=== PATIENT | male | born 2000 | race American Indian/Alaskan Native ===

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

== ENCOUNTER 2021-05-10 00:49 | Emergency (ER) | payer BC, OTHER ==
[~2021-05-10] VITALS: Ht 180.3 cm; Wt 90.9 kg
[~2021-05-10 00:49] MED LIST: BUPR100T7 PO; NICO-687 TD; TRAZ-251 PO
[2021-05-10 00:54] VITALS: BP 121/93
== END 2021-05-10 01:30 ==
LOC: ER 00:50
DX: Z02.89 Encounter for other administrative examinations (principal)
CPT/HCPCS: 99283